=== PATIENT | male | born 1945 | race Caucasian/White ===

== ENCOUNTER 2020-03-11 18:28 | Emergency (ER) | payer OTHER, MEDICARE ==
[~2020-03-11] VITALS: Ht 193 cm; Wt 117.5 kg
[2020-03-11 18:36] VITALS: BP_SYST 153
[2020-03-11] MEDS ORDERED: BACITRACIN 1 GM OINT TP ONE (19:15)
[2020-03-11 19:20] VITALS: BP_SYST 153
== END 2020-03-11 19:20 | disposition home or self-care (01) ==
LOC: SED 18:28
DX: L98.499 Non-pressure chronic ulcer of skin of other sites with unspecified severity (principal); I10 Essential (primary) hypertension; E11.9 Type 2 diabetes mellitus without complications; Z85.46 Personal history of malignant neoplasm of prostate; Z88.0 Allergy status to penicillin
CPT/HCPCS: 99283

== ENCOUNTER 2020-03-30 17:15 | Emergency (ER) | payer OTHER, MEDICARE ==
[~2020-03-30] VITALS: Ht 193 cm; Wt 117.0 kg
[2020-03-30 17:29] VITALS: BP_SYST 144
--- NOTE | 2020-03-30 17:29 | NUR ---
Placed in room 02 . Placed on manager cardiac, blood pressure machine and pulse oximeter. To gown for exam. Side rails up.
--- NOTE | 2020-03-30 17:30 | NUR ---
Pt walked in to ER after being referred here by PMD for elevated potassium level. Denies any chest pain, SOB or heat palpitations. V/S stable, pt is afebrile. Currently resting in bed, will continue to monitor.
--- NOTE | 2020-03-30 17:35 | NUR ---
EKG performed at BS by RN. Physician given copy of EKG for review.
--- NOTE | 2020-03-30 17:40 | NUR ---
# 20 gauge angiocath placed to RAC. Use of asceptic technique. Opsite placed over site. Blood return noted. Blood for lab drawn from site. Flushed with 10 cc of normal saline. No evidence of infiltration noted. Patient tolerated well.
--- NOTE | 2020-03-30 17:45 | NUR ---
ER Dr. Ennis at bedside examining patient.
[2020-03-30 18:00] LABS: HEMOGLOBIN 12.7 g/dL (14.0-18.0); MEAN CORPUSCULAR VOLUME 97 fL (79.0-98.0)
[2020-03-30] MEDS ORDERED: SODIUM BICARBONATE 8.4% JECT 50 MEQ/50 ML SYRINGE IVP ONE (18:00)
[2020-03-30 18:02] LABS: ANION GAP 15 (5-15); CALCIUM 9.4 mg/dL (8.4-11.0); CHLORIDE 105 mmol/L (98-107); CREATININE 1.78 mg/dL (0.55-1.30); GLUCOSE 115 mg/dL (70-99); POTASSIUM 5.2 mmol/L (3.5-5.1); SODIUM SERUM 136 mmol/L (136-145); UREA NITROGEN, BLOOD 55 mg/dL (8-21)
[2020-03-30 18:08] LABS: ALANINE AMINOTRANSFERASE 33 U/L (12-78); ALBUMIN 3.3 g/dL (3.4-4.8); ASPARTATE AMINOTRANSFERASE 18 U/L (10-37); TOTAL BILIRUBIN 0.5 mg/dL (0.0-1.0)
[2020-03-30 18:14] LABS: PROTHROMBIN TIME 9.6 SECS (9.5-12.5)
[2020-03-30 18:19] LABS: HEMATOCRIT 39.7 % (36-54); MEAN CORPUSCULAR HEMOGLOBIN 31 pg (27-31); MEAN CORPUSCULAR HGB CONC 32 % (32-36); PLATELET COUNT (AUTO) 275 K/uL (130-430); RED CELL DISTRIBUTION WIDTH 15.1 % (9.0-15.0); WHITE BLOOD COUNT (AUTO) 8.8 K/uL (4.8-10.8)
[2020-03-30] MEDS ORDERED: SODIUM ZIRCONIUM CYCLOSILICATE 10 GM POWD.PACK PO ONE (18:30)
--- NOTE | 2020-03-30 18:50 | NUR ---
Patient given written and verbal discharge instructions and verbalizes understanding. ER MD discussed with patient the results and treatment provided. Patient in stable condition. ID arm band removed. IV catheter removed intact and dressing applied, no active bleeding. Rx of Kayecalate given. Patient educated on pain management and to follow up with PMD. Pain Scale 0. Opportunity for questions provided and answered. Medication side effect fact sheet provided.
[2020-03-30 19:04] VITALS: BP_SYST 144
[2020-03-30 19:07] LABS: ATYPICAL LYMPHOCYTES % 0 % (0-0); BAND % (MANUAL) 0 % (0-6); BASOPHILS % (MANUAL) 0 % (0-2); EOSINOPHILS % (MANUAL) 4 % (0-7); LYMPHOCYTES % (MANUAL) 17 % (20-46); MONOCYTES % (MANUAL) 10 % (0-11)
== END 2020-03-30 18:50 | disposition home or self-care (01) ==
LOC: SED 17:15
DX: E87.5 Hyperkalemia (principal); E11.9 Type 2 diabetes mellitus without complications; I10 Essential (primary) hypertension; Z90.49 Acquired absence of other specified parts of digestive tract; Z85.46 Personal history of malignant neoplasm of prostate; Z88.0 Allergy status to penicillin
CPT/HCPCS: 36415; 80053; 85007; 85027; 85610-TC; 85730-TC; 93005; 96374; 99283

== ENCOUNTER 2021-03-29 09:12 | Emergency (ER) | payer OTHER, MEDICARE, SELFPAY ==
[~2021-03-29] VITALS: Ht 193 cm; Wt 117.9 kg
[2021-03-29 09:25] VITALS: BP_SYST 146
[2021-03-29 10:13] LABS: BASOPHILS % (AUTO) 0.6 % (0.0-2.0); EOSINOPHILS # (AUTO) 0.1 K/uL (0.0-0.4); EOSINOPHILS % (AUTO) 3.9 % (0.0-4.0); HEMATOCRIT 35.1 % (36-54); HEMOGLOBIN 12.4 g/dL (14.0-18.0); LYMPHOCYTES # (AUTO) 0.4 K/uL (1.0-5.5); LYMPHOCYTES % (AUTO) 19.1 % (20.5-51.5); MEAN CORPUSCULAR HEMOGLOBIN 33 pg (27-31); MEAN CORPUSCULAR HGB CONC 35 % (32-36); MEAN CORPUSCULAR VOLUME 93 fL (79.0-98.0); MONOCYTES # (AUTO) 0.1 K/uL (0.0-1.0); MONOCYTES % (AUTO) 4.8 % (1.7-9.3); NEUTROPHILS # (AUTO) 1.4 K/uL (1.8-7.7); NEUTROPHILS % (AUTO) 71.6 % (40.0-70.0); PLATELET COUNT (AUTO) 235 K/uL (130-430); RED BLOOD CELL COUNT(AUTO) 3.76 MIL/uL (4.2-6.2); RED CELL DISTRIBUTION WIDTH 14.6 % (9.0-15.0)
[2021-03-29 10:14] LABS: ANION GAP 7 (5-15); CALCIUM 9.2 mg/dL (8.4-11.0); CHLORIDE 97 mmol/L (98-107); CREATININE 1.13 mg/dL (0.55-1.30); GLUCOSE 108 mg/dL (70-99); POTASSIUM 3.9 mmol/L (3.5-5.1); SODIUM SERUM 132 mmol/L (136-145); UREA NITROGEN, BLOOD 17 mg/dL (8-21)
[2021-03-29 10:20] LABS: ALANINE AMINOTRANSFERASE 89 U/L (12-78); ALBUMIN 2.9 g/dL (3.4-4.8); ASPARTATE AMINOTRANSFERASE 64 U/L (10-37); TOTAL BILIRUBIN 1.1 mg/dL (0.0-1.0)
[2021-03-29 10:21] LABS: WHITE BLOOD COUNT (AUTO) 1.9 K/uL (4.8-10.8)
[2021-03-29] MEDS ORDERED: PSEU120T57 PO (10:57)
[2021-03-29 11:54] VITALS: BP_SYST 146
== END 2021-03-29 11:45 | disposition home or self-care (01) ==
LOC: SED 09:12
DX: U07.1 COVID-19 (principal); J40 Bronchitis, not specified as acute or chronic; D72.829 Elevated white blood cell count, unspecified; I10 Essential (primary) hypertension; E11.9 Type 2 diabetes mellitus without complications; Z88.0 Allergy status to penicillin
CPT/HCPCS: 36415; 71045; 80053; 83880; 84484; 85025; 85610-TC; 85730-TC; 93005; 99285

== ENCOUNTER 2023-01-19 08:57 | Emergency (ER) | payer OTHER, MEDICARE ==
[~2023-01-19] VITALS: Ht 190.5 cm; Wt 127.0 kg
[~2023-01-19 08:57] MED LIST: PSEU120T57 PO
[2023-01-19 09:19] VITALS: BP_SYST 124
--- NOTE | 2023-01-19 09:40 | NUR ---
ER at bedside examining patient.
--- NOTE | 2023-01-19 09:42 | NUR ---
Swabbed for COVID & FLU. Sent to lab.
--- NOTE | 2023-01-19 09:52 | NUR ---
PT PRESENTS TO ED WITH RIGHT RIB PAIN AND PAIN WITH COUGH. PT CONNECTED TO VSS CONTINUOUS MONITOR, NAD EVEN UNLABORED RR. CAP REFILL<3 PLACED IN GOWN IV TO LAC 18G. AT BEDSIDE
--- NOTE | 2023-01-19 09:55 | NUR ---
REPORT TO ANTONI VITALE
[2023-01-19 09:57] LABS: BASOPHILS % (AUTO) 0.6 % (0.0-2.0); EOSINOPHILS # (AUTO) 0.2 K/uL (0.0-0.4); EOSINOPHILS % (AUTO) 2.6 % (0.0-4.0); HEMATOCRIT 37.8 % (36-54); HEMOGLOBIN 12.6 g/dL (14.0-18.0); LYMPHOCYTES # (AUTO) 1.1 K/uL (1.0-5.5); LYMPHOCYTES % (AUTO) 15.8 % (20.5-51.5); MEAN CORPUSCULAR HEMOGLOBIN 32 pg (27-31); MEAN CORPUSCULAR HGB CONC 33 % (32-36); MEAN CORPUSCULAR VOLUME 95 fL (79.0-98.0); MONOCYTES % (AUTO) 13.9 % (1.7-9.3); NEUTROPHILS # (AUTO) 4.7 K/uL (1.8-7.7); NEUTROPHILS % (AUTO) 67.1 % (40.0-70.0); PLATELET COUNT (AUTO) 251 K/uL (130-430); RED BLOOD CELL COUNT(AUTO) 3.97 MIL/uL (4.2-6.2); RED CELL DISTRIBUTION WIDTH 16.8 % (9.0-15.0); WHITE BLOOD COUNT (AUTO) 7.1 K/uL (4.8-10.8)
[2023-01-19 10:03] LABS: ANION GAP 7 (5-15); CALCIUM 8.8 mg/dL (8.4-11.0); CHLORIDE 102 mmol/L (98-107); CREATININE 1.32 mg/dL (0.55-1.30); GLUCOSE 91 mg/dL (70-99); UREA NITROGEN, BLOOD 31 mg/dL (8-21)
[2023-01-19 10:08] LABS: PROTHROMBIN TIME 10.1 SECS (9.5-12.5)
[2023-01-19 10:10] LABS: ALANINE AMINOTRANSFERASE 44 U/L (12-78); ALBUMIN 3.4 g/dL (3.4-4.8); ASPARTATE AMINOTRANSFERASE 25 U/L (10-37); C-REACTIVE PROTEIN QUANT 0.2 mg/dL (0-0.5); TOTAL BILIRUBIN 0.4 mg/dL (0.0-1.0)
--- NOTE | 2023-01-19 10:11 | NUR ---
Stable VSS Minimal Pain MD has reassessed and Dc'd home To exit
[2023-01-19] MEDS ORDERED: FLUT16SP16 NS (10:54)
[2023-01-19] MEDS ORDERED: PSEU30TA36 PO (10:54)
[2023-01-19] MEDS ORDERED: ALBMDI INH (10:54)
[2023-01-19 10:57] VITALS: BP_SYST 113
[2023-01-19] MEDS ORDERED: ALBUTEROL SULFATE 0.083% 2.5 MG/3 ML VIAL.NEB INH ONE (11:15)
[2023-01-19] MEDS ORDERED: IPRATROPIUM BROM 0.5 MG/2.5 ML VIAL.NEB (ATROVENT) INH ONE (11:15)
== END 2023-01-19 10:11 | disposition home or self-care (01) ==
LOC: SED 08:57
DX: J40 Bronchitis, not specified as acute or chronic (principal); R05.9 Cough, unspecified; R06.02 Shortness of breath; R07.81 Pleurodynia; E11.9 Type 2 diabetes mellitus without complications; I10 Essential (primary) hypertension; Z88.0 Allergy status to penicillin; Z79.899 Other long term (current) drug therapy; Z20.822 Contact with and (suspected) exposure to COVID-19
CPT/HCPCS: 80053; 82550; 83880; 85025; 85610; 85730; 86140; 84484; 36415; 93005; 71045; 94640; 99285; 83605; 87804 ×2; 87426; J7613